=== PATIENT | male | born 1950 | race Caucasian/White ===

== ENCOUNTER 2017-03-11 11:03 | Outpatient (CLI) | payer OTHER ==
[2017-03-11 14:43] LABS: Hematocrit 45.4 % (42.0-52.0); Mean Platelet Volume 8.7 fL (7.4-10.4); White Blood Cell (WBC) Count 5.1 thou/uL (4.8-10.8)
[2017-03-11 14:46] LABS: Bilirubin Negative (Negative); Blood, Urine Negative (Negative); Glucose, Urine (Dipstick) Negative (Negative); Ketone, Urine Negative (Negative); Nitrite Negative (Negative); Protein, Urine (Dipstick) Negative (Neg-Trace); Urobilinogen 0.2 mg/dL (0.2-1.0)
[2017-03-11 14:48] LABS: Bacteria/HPF None Seen HPF (None Seen); Hyaline Casts/LPF 0-3 HYALINE CAST LPF (0-3 Hyaline); RBC/HPF 0-3 HPF (0-3); Squamous Epithelial None Seen HPF (0-3); WBC/HPF None Seen HPF (0-3)
[2017-03-11 14:51] LABS: PTT 32.8 SEC (22.9-36.1); Prothrombin Time 14.3 SEC (12.0-14.7)
[2017-03-11 15:09] LABS: ALT (SGPT) 17 U/L (8-55); AST (SGOT) 21 U/L (5-34); Alkaline Phosphatase 95 U/L (40-150); Anion Gap 10 mmol/L (10-20); BUN (Urea Nitrogen) 16 mg/dL (8.4-25.7); Bilirubin, Total 0.9 mg/dL (0.2-1.2); Calc. Creatinine Clearance 0 mL/min (70-130); Calcium 9.9 mg/dL (7.8-10.44); Carbon Dioxide 29 mmol/L (23-31); Chloride 105 mmol/L (98-107); Estimated GFR-MDRD 86; Globulin 3.1 g/dL (2.4-3.5); Protein, Total 7.5 g/dL (5.8-8.1)
== END 2017-03-11 11:04 | disposition home or self-care (01) ==
LOC: LABBT 11:03
PROVIDERS: ATTEND Urology
DX: Z01.818 Encounter for other preprocedural examination (principal); C61 Malignant neoplasm of prostate
CPT/HCPCS: 80053; 81001; 85027; 85610; 85730; 87086; 93005; 93010

== ENCOUNTER 2017-03-22 10:58 | Outpatient (CLI) | payer OTHER | END 2017-03-22 10:59 | disposition home or self-care (01) | LOC: LABBT 10:58 | PROVIDERS: ATTEND Urology | DX: Z01.812 Encounter for preprocedural laboratory examination (principal); C61 Malignant neoplasm of prostate | CPT/HCPCS: 86850; 86900; 86901 ==

== ENCOUNTER 2018-06-02 08:40 | Outpatient (CLI) | payer MEDICARE ==
--- NOTE | 2018-06-02 09:59 | ULT ---
ABDOMINAL AORTIC ULTRASOUND: Velasquez scale, Doppler color flow, and spectral analysis performed. INDICATION: Abdominal aortic aneurysm screening evaluation. FINDINGS: The proximal abdominal aorta measures 2.2 x 1.6 cm, mid abdominal aorta 1.5 x 1.5 cm, and distal abdo annika aorta 1.9 x 1.6 cm. Imaged right iliac artery is approximately 8-9 mm, and the left iliac rosalie ry is approximately 1 cm. Mild atherosclerotic irregularity is present. IMPRESSION: 1. No evidence of aortic aneurysm. 2. 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 POS: [facility]
== END 2018-06-02 08:41 | disposition home or self-care (01) ==
LOC: BICULT 08:40
PROVIDERS: ATTEND Family Medicine
DX: Z13.6 Encounter for screening for cardiovascular disorders (principal); I77.89 Other specified disorders of arteries and arterioles
CPT/HCPCS: 76706

== ENCOUNTER 2021-11-12 15:02 | Outpatient (CLI) | payer MEDICARE ==
[2021-11-12 15:53] LABS: #Basophils 0.1 10x3/uL (0.0-0.2); #Eosinphils 0.2 10x3/uL (0.0-0.5); #Monocytes 0.6 10x3/uL (0.0-1.1); #Neutrophils 3.4 10x3/uL (1.5-8.4); %Basophils 1.4 % (0.0-2.0); %Eosinophils 2.8 % (0.0-6.0); %Lymphocytes 23.9 % (18.0-47.0); %Neutrophils 60.7 % (40.0-75.0); Hemoglobin 13.8 g/dL (13.5-17.5); Mean Corpuscular HGB CONC 34.5 g/dL (32.0-36.0); Mean Corpuscular Hemoglobin 31.2 pg (27.0-33.0); Mean Corpuscular Volume 90.5 fl (81.2-95.1); Mean Platelet Volume 10.2 fl (7.4-10.4); Platelet Count 232 10x3/uL (150-450); RBC Distribution Width 12.9 % (11.5-14.5); Red Blood Cell (RBC) Count 4.42 10x6/uL (4.32-5.72); White Blood Cell (WBC) Count 5.7 10x3/uL (3.5-10.5)
[2021-11-12 16:21] LABS: ALT (SGPT) 15 U/L (8-55); AST (SGOT) 21 U/L (5-34); Albumin 4.3 g/dL (3.4-4.8); Alkaline Phosphatase 98 U/L (40-110); Anion Gap 15 mmol/L (10-20); BUN (Urea Nitrogen) 15 mg/dL (8.4-25.7); Bilirubin, Total 0.7 mg/dL (0.2-1.2); Calc. Creatinine Clearance 0 mL/min (70-130); Calcium 9.3 mg/dL (7.8-10.44); Carbon Dioxide 24 mmol/L (23-31); Chloride 105 mmol/L (98-107); Glucose 103 mg/dL (80-115); Potassium 4.6 mmol/L (3.5-5.1); Protein, Total 7.3 g/dL (5.8-8.1); Sodium 139 mmol/L (136-145)
== END 2021-11-12 15:03 | disposition home or self-care (01) ==
LOC: LABBT 15:02
PROVIDERS: ATTEND Surgery
DX: Z01.818 Encounter for other preprocedural examination (principal); Z20.822 Contact with and (suspected) exposure to COVID-19
CPT/HCPCS: 80053; 85025; U0003; U0005; 93005; 93010

== ENCOUNTER 2021-11-17 09:16 | Day surgery (SDC) | payer MEDICARE ==
[2021-11-12 14:46] VITALS: BMI 24.4
[2021-11-17] MEDS ORDERED: Bupivacaine PF 0.5% 30 ML VIAL ONE (10:03)
[2021-11-17] MEDS ORDERED: Lidocaine 1% w/Epinephrine 1:100K 20 ML VIAL ONE (10:03)
[2021-11-17] MEDS ORDERED: Isosulfan Blue 50 MG/5 ML VIAL ONE (10:03)
[2021-11-17] MEDS ORDERED: fentaNYL Citrate/PF 100 MCG/2 ML SYRINGE ONE (10:12)
[2021-11-17] MEDS ORDERED: CEFAZOLIN 2 GM VIAL ONE (11:15)
[2021-11-17] MEDS ORDERED: Sodium Chloride 0.9% 100 ML ONE (11:16)
[2021-11-17] MEDS ORDERED: Ondansetron PF 4 MG/2 ML Vial ONE (11:25)
[2021-11-17] MEDS ORDERED: Dexamethasone 20 MG/5 ML VIAL ONE (11:25)
[2021-11-17] MEDS ORDERED: PROPOFOL 200 MG/20 ML VIAL ONE (11:25)
[2021-11-17] MEDS ORDERED: Lidocaine 1% PF 5 ML VIAL ONE (11:25)
[2021-11-17] MEDS ORDERED: Ketorolac Tromethamine 30 MG/ML VIAL ONE (11:25)
[2021-11-17] MEDS ORDERED: Fentanyl 100 MCG/2 ML VIAL ONE (12:53)
[2021-11-17] MEDS ORDERED: Ondansetron ODT 4 MG TAB ONE (13:43)
== END 2021-11-17 15:01 | disposition home or self-care (01) ==
LOC: SDC 09:16
PROVIDERS: ATTEND Surgery
PROC: 07B50ZX Excision of Right Axillary Lymphatic, Open Approach, Diagnostic (ICD-10-PCS; principal; 2021-11-17)
PROC: 0HBBXZZ Excision of Right Upper Arm Skin, External Approach (ICD-10-PCS; 2021-11-17)
DX: C43.61 Malignant melanoma of right upper limb, including shoulder (principal); Z85.46 Personal history of malignant neoplasm of prostate; Z87.891 Personal history of nicotine dependence
CPT/HCPCS: 11603; 38525; 38900; 78195; A9541; Q9968; 88305; 88307; 88342; J0690; J3010; J3490; Q0162; S0020

== ENCOUNTER 2022-07-27 09:24 | Inpatient (IN) | payer MEDICARE ==
[2022-07-27] MEDS ORDERED: Bisacodyl 10 MG SUPP PR PRN (12:08)
[2022-07-27] MEDS ORDERED: Bisacodyl 5 MG TAB PO PRN (12:08)
[2022-07-27] MEDS ORDERED: Senokot S 8.6-50 MG TAB PO PRN (12:08)
[2022-07-27 12:40] VITALS: BMI 24.7
[2022-07-27] MEDS ORDERED: FLU VACC QS2022-23(65YR UP)/PF 240 MCG/0.7 ML SYRINGE IM ONE (13:00)
[2022-07-27] MEDS ORDERED: DOBUTamine 500 mg/250 ml 250 ML IVPB SCH (14:00)
[2022-07-27] MEDS: Sodium Chloride 0.9% 1,000 ML IV SCH (15:06)
[2022-07-28] MEDS: Sodium Chloride 0.9% 1,000 ML IV SCH (05:26)
[2022-07-28 05:48] LABS: #Basophils 0.1 thou/uL (0.0-0.2); #Eosinphils 0.1 thou/uL (0.0-0.7); #Lymphocytes 1.1 thou/uL (1.20-3.40); #Monocytes 0.8 thou/uL (0.11-0.59); #Neutrophils 7.1 thou/uL (1.40-6.50); %Basophils 0.6 % (0.0-1.0); %Eosinophils 0.6 % (0.0-10.0); %Monocytes 8.8 % (0.0-10.0); Hemoglobin 13.7 g/dL (14.0-18.0); Mean Corpuscular HGB CONC 33.1 g/dL (32.0-36.0); Mean Corpuscular Hemoglobin 31.9 pg (27.0-31.0); Mean Corpuscular Volume 96.4 fl (78.0-98.0); Mean Platelet Volume 8.4 fL (7.4-10.4); Platelet Count 207 10x3/uL (130-400); Red Blood Cell (RBC) Count 4.28 mill/uL (4.70-6.10); White Blood Cell (WBC) Count 9.1 10x3/uL (4.8-10.8)
[2022-07-28 06:13] LABS: Anion Gap 14 mmol/L (10-20); BUN (Urea Nitrogen) 14 mg/dL (8.4-25.7); Calc. Creatinine Clearance 97 mL/min (70-130); Calcium 9.1 mg/dL (7.8-10.44); Carbon Dioxide 21 mmol/L (23-31); Cardiac Risk 4.4 (Less than 4.5); Chloride 105 mmol/L (98-107); Cholesterol 159 mg/dl (< 200 Desired); Estimated GFR 94; Glucose 151 mg/dL (80-115); HDL Cholesterol 36 mg/dL (>60 Neg Risk); LDL Cholesterol, Calculated 111 mg/dL; Potassium 3.8 mmol/L (3.5-5.1); Sodium 136 mmol/L (136-145); Triglycerides 58 mg/dL (Less than 150)
[2022-07-28] MEDS ORDERED: Lidocaine 1% (PF) 30 ML VIAL ONE ×2 (06:28→07:25)
[2022-07-28] MEDS ORDERED: CEFAZOLIN 1 GM VIAL ONE (06:28)
[2022-07-28] MEDS ORDERED: CEFAZOLIN 2 GM VIAL ONE (06:28)
[2022-07-28] MEDS ORDERED: Gentamicin 80 MG/2 ML VIAL ONE (06:28)
[2022-07-28] MEDS ORDERED: FENTANYL 50 MCG/ML 1 ML VIAL ONE (07:14)
[2022-07-28] MEDS ORDERED: Midazolam HCl 2 mg/2 ml Vial ONE (07:15)
[2022-07-28] MEDS ORDERED: Ondansetron PF 4 MG/2 ML Vial ONE (07:44)
[2022-07-28] MEDS ORDERED: Acetaminophen 325 MG TAB PO PRN (08:38)
[2022-07-28] MEDS ORDERED: Iopamidol 370 76% 100 ML VIAL ONE (08:54)
[2022-07-28 13:05] VITALS: TEMP 98
[2022-07-28 13:29] VITALS: BP 114/58
[2022-07-28] MEDS ORDERED: Cephalexin 250 MG CAP PO SCH (14:00)
== END 2022-07-28 14:30 | disposition home or self-care (01) | DRG 244 ==
LOC: IMCU/EMU 10:32 → CCU 14:47
PROVIDERS: ADMIT Hospitalist; ATTEND Internal Medicine
PROC: 0JH606Z Insertion of Pacemaker, Dual Chamber into Chest Subcutaneous Tissue and Fascia, Open Approach (ICD-10-PCS; principal; 2022-07-28)
PROC: 02H63JZ Insertion of Pacemaker Lead into Right Atrium, Percutaneous Approach (ICD-10-PCS; 2022-07-28)
PROC: 02HK3JZ Insertion of Pacemaker Lead into Right Ventricle, Percutaneous Approach (ICD-10-PCS; 2022-07-28)
DX: I44.2 Atrioventricular block, complete (principal); R55 Syncope and collapse; S00.91XA Abrasion of unspecified part of head, initial encounter; Z87.891 Personal history of nicotine dependence; Z85.46 Personal history of malignant neoplasm of prostate; Z90.79 Acquired absence of other genital organ(s); Z90.49 Acquired absence of other specified parts of digestive tract; Z98.890 Other specified postprocedural states; Z85.820 Personal history of malignant melanoma of skin; E78.00 Pure hypercholesterolemia, unspecified
CPT/HCPCS: 33208; 36415; 71045; 75820; 80048; 80061; 84443; 85025; 93306; 93798; 99152; 99153; C1785; C1898; J0690; J1250; J1580; J2001; J2250; J2405; J3010; J7050

== ENCOUNTER 2023-10-08 14:36 | Emergency (ER) | payer MEDICARE ==
[2023-10-08 15:00] LABS: #Basophils Less than 0.03 10x3/uL (0.0-0.2); #Eosinphils Less than 0.03 10x3/uL (0.0-0.7); %Basophils 0.1 % (0.0-1.0); %Lymphocytes 4.1 % (21.0-51.0); %Monocytes 5.8 % (0.0-10.0); %Neutrophils 89.6 % (42.0-75.0); Hematocrit 37.8 % (42.0-52.0); Hemoglobin 13.2 g/dL (14.0-18.0); Mean Corpuscular HGB CONC 34.9 g/dL (32.0-36.0); Mean Corpuscular Hemoglobin 31.5 pg (27.0-31.0); Mean Corpuscular Volume 90.2 fL (78.0-98.0); Mean Platelet Volume 11.1 fL (7.4-10.4); Platelet Count 191 10x3/uL (130-400); RBC Distribution Width 12.7 % (11.5-14.5); Red Blood Cell (RBC) Count 4.19 mill/uL (4.70-6.10)
[2023-10-08 15:26] LABS: Troponin I Less than 0.010 ng/mL (< 0.028)
[2023-10-08 15:29] LABS: ALT (SGPT) 66 U/L (8-55); AST (SGOT) 52 U/L (5-34); Alkaline Phosphatase 115 U/L (40-110); Anion Gap 14 mmol/L (10-20); BUN (Urea Nitrogen) 30 mg/dL (8.4-25.7); Bilirubin, Total 0.8 mg/dL (0.2-1.2); Calc. Creatinine Clearance 0 mL/min (70-130); Calcium 9.3 mg/dL (7.8-10.44); Carbon Dioxide 20 mmol/L (23-31); Chloride 106 mmol/L (98-107); Estimated GFR 73; Globulin 3.1 g/dL (2.4-3.5); Glucose 98 mg/dL (83-110); Potassium 4.2 mmol/L (3.5-5.1); Protein, Total 7.1 g/dL (5.8-8.1); Sodium 136 mmol/L (136-145)
[2023-10-08 16:54] LABS: Bilirubin Negative (Negative); Blood, Urine Negative (Negative); Glucose, Urine (Dipstick) Negative (Negative); Ketone, Urine Negative (Negative); Leukocyte Negative (Negative); Nitrite Negative (Negative); Protein, Urine (Dipstick) Negative (Neg-Trace); Urobilinogen 0.2 mg/dL (Less than 2); pH, Urine 6.5 (5.0-9.0)
[2023-10-08 16:57] LABS: Clarity Clear (Clear); Specific Gravity, Urine 1.006 (1.002-1.036)
[2023-10-08 16:58] LABS: Bacteria/HPF None Seen HPF (None Seen); CAUTI Indications for Culture Immunosuppressed; RBC/HPF None Seen HPF (0-3); Squamous Epithelial None Seen HPF (0-3); WBC/HPF 0-3 HPF (0-3)
[2023-10-08 16:59] LABS: Urine Culture Reflex Yes Yes
== END 2023-10-08 18:07 | disposition home or self-care (01) ==
LOC: ERS 14:36
DX: D72.829 Elevated white blood cell count, unspecified (principal); Z95.0 Presence of cardiac pacemaker
CPT/HCPCS: 36415; 71045; 80053; 81001; 83605; 84484; 85025; 87077; 87086; 87186; 93005

== ENCOUNTER 2023-11-13 10:46 | Emergency (ER) | payer MEDICARE ==
[2023-11-13 11:57] LABS: #Basophils 0.04 10x3/uL (0.0-0.2); %Basophils 0.4 % (0.0-1.0); %Eosinophils 1.5 % (0.0-10.0); %Lymphocytes 8.7 % (21.0-51.0); %Monocytes 10.6 % (0.0-10.0); %Neutrophils 78.6 % (42.0-75.0); Hematocrit 37.8 % (42.0-52.0); Hemoglobin 13.2 g/dL (14.0-18.0); Mean Corpuscular HGB CONC 34.9 g/dL (32.0-36.0); Mean Corpuscular Hemoglobin 31.9 pg (27.0-31.0); Mean Corpuscular Volume 91.3 fL (78.0-98.0); Mean Platelet Volume 9.9 fL (7.4-10.4); Platelet Count 190 10x3/uL (130-400); RBC Distribution Width 12.7 % (11.5-14.5); Red Blood Cell (RBC) Count 4.14 mill/uL (4.70-6.10)
[2023-11-13 12:14] LABS: ALT (SGPT) 84 U/L (8-55); AST (SGOT) 65 U/L (5-34); Albumin 3.2 g/dL (3.4-4.8); Alkaline Phosphatase 120 U/L (40-110); Anion Gap 15 mmol/L (10-20); BUN (Urea Nitrogen) 13 mg/dL (8.4-25.7); Bilirubin, Total 0.9 mg/dL (0.2-1.2); Calc. Creatinine Clearance 0 mL/min (70-130); Calcium 8.7 mg/dL (7.8-10.44); Carbon Dioxide 22 mmol/L (23-31); Chloride 104 mmol/L (98-107); Estimated GFR 93; Globulin 2.9 g/dL (2.4-3.5); Glucose 82 mg/dL (83-110); Potassium 4.2 mmol/L (3.5-5.1); Protein, Total 6.1 g/dL (5.8-8.1); Sodium 137 mmol/L (136-145)
== END 2023-11-13 13:31 | disposition home or self-care (01) ==
LOC: ERS 10:46
DX: I95.9 Hypotension, unspecified (principal); Z55.6 Problems related to health literacy
CPT/HCPCS: 71045; 80053; 85025; 93005; 96360